=== PATIENT | female | born 1950 | race Caucasian/White ===

== ENCOUNTER → 2017-11-15 | Outpatient (CLI) | payer OTHER, MEDICARE ==
[~2017-11-15] MED LIST: INDERAL80 MG PO; PRAVACHOL20 MG PO
--- NOTE | ~2017-11-15 | EKG ---
[address] [employer] [place] [address] ELECTROCARDIOGRAM REPORT Name: ELADIO EVANS Room #: REG [facility]#: [id number] Admission: 11/15/17 Attend Phys: Blas Ramos MD Discharge: Date of : 48 Report #: [id number] THIS REPORT FOR: //name// [facility] Test Date: 2017-11-15 Test Time: 13:12:08 Pat Name: ELADIO EVANS Department: Room: Gender: F Porter Sample Case: SERGEY : 1950 Requested By: Blas Ramos Order Number: [id number] MD: Mahesh Malik Measurements Intervals [place] Rate: 53 P: 45 AK: 158 QRS: 34 QRSD: 87 T: 29 QT: 426 QTc: 400 Interpretive Statements Sinus bradycardia Otherwise normal tracing No previous ECG available for comparison Electronically Signed On 11-16-2017 8:12:21 CDT by Mahesh Malik [email or web address] <ELECTRONICALLY SIGNED> By: Mahesh Malik MD, [facility] 11/16/17 0812 1312 1312 Mahesh Malik MD, FACC /EPI
== END | disposition home or self-care (01) ==
LOC: LITH 11:58
DX: N20.0 Calculus of kidney (principal); I10 Essential (primary) hypertension; E78.00 Pure hypercholesterolemia, unspecified; F32.9 Major depressive disorder, single episode, unspecified; G43.909 Migraine, unspecified, not intractable, without status migrainosus; Z98.51 Tubal ligation status; Z98.890 Other specified postprocedural states; Z79.899 Other long term (current) drug therapy; Z88.8 Allergy status to other drugs, medicaments and biological substances

== ENCOUNTER → 2017-12-12 | Outpatient (CLI) | payer OTHER, BC | END | disposition home or self-care (01) | LOC: LITH 06:34 | DX: N20.1 Calculus of ureter (principal); E78.00 Pure hypercholesterolemia, unspecified; G43.909 Migraine, unspecified, not intractable, without status migrainosus; F32.9 Major depressive disorder, single episode, unspecified; F41.9 Anxiety disorder, unspecified; Z87.19 Personal history of other diseases of the digestive system; Z88.8 Allergy status to other drugs, medicaments and biological substances; Z79.899 Other long term (current) drug therapy; Z98.890 Other specified postprocedural states ==